=== PATIENT | female | born 1995 | race Caucasian/White ===

== ENCOUNTER 2017-10-19 12:52 | Emergency (ER) | payer OTHER ==
[~2017-10-19] VITALS: Ht 160 cm; Wt 52.3 kg
[2017-10-19 12:54] VITALS: BP 115/79
== END 2017-10-19 14:20 | disposition home or self-care (01) ==
LOC: EMS 12:59
DX: R07.0 Pain in throat (principal); J02.9 Acute pharyngitis, unspecified; R13.10 Dysphagia, unspecified
CPT/HCPCS: 87430; 99283